=== PATIENT | female | born 1945 | race Caucasian/White ===

== ENCOUNTER → 2017-11-04 | Outpatient (CLI) | payer OTHER ==
[~2017-11-04] MED LIST: ABILIFY 2 MG2 MG OR; ABILIFY 2 MG2 MG PO; ABILIFY 5 MG TAB5 M1 PO; AFRIN15 ML NS; ARAVA10 MG PO; ASPIR 8181 M1 PO; BIOTECT PLUS L473 ML OR; CALCIUM 500 WI1 EAC3 PO; CALCIUM ASCORB500 MG PO; CEFDINIR PO; CELEBREX 200 M200 MG OR; CEPHALEXIN 500500 M1 PO; CIPRO250 M1 PO; CLARINEX5 MG OR; CLARINEX5 MG PO; CLONAZEPAM 1 MG1 M1 PO; CYCLOBENZAPRINE5 MG PO; CYMBALTA OR; CYMBALTA PO; CYMBALTA30 MG PO; DILAUDID 2 MG TA2 MG OR; DILAUDID 4 MG TA4 M1 PO; DOXYCYCLINE 10100 M1 PO; DUCODYL5 MG PO; DULCOLAX5 MG PO; DURAGESIC1 EAC2 TRANSDERM; ESTRADIOL 1 MG T1 M1 PO; FENTANYL PA25 MCG/HR; FENTANYL PA25 MCG/HR TD; FENTANYL PA50 MCG/HR TP; FENTANYL PA50 MCG/HR TRANSDERM; FENTANYL PATCH75 MCG TP; FOLIC ACID1 MG OR; FOLIC ACID1 MG PO; GELNIQUE30 GM TD; HAIR SKIN NAILS; HORIZANT600 MG PO; HYDROCODON-ACE1 EAC5 PO; IRON325 PO; KLOR-CON 1010 MEQ OR; KLOR-CON 1010 MEQ PO; LEVOTHYROXIN0.125 M1 PO; LISINOPRIL PO; LORTAB 7.5/5001 TA3 PO; LYRICA 50 MG50 MG OR; METHOTREXATE 22.5 MG OR; MINIPRIN81 MG OR; MIRALAX17 GM PO; MIRALAX255 GM OR; MUPIROCIN22 GM NASAL; NASONEX17 GM; NASONEX17 GM IH; NASONEX17 GM INH; NEUPRO1 EAC4 TD; NEURONTIN 300300 M1 PO; NORCO 10-325 T1 EACH PO; NUVIGIL OR; NUVIGIL PO; Nasonex NASAL; OPANA5 M1 PO; ORENCIA125 MG/1 M; OXYMORPHONE HCL5 MG PO; PHOSLO OR; PREDNISONE 10 M10 M1 PO; REMICADE 1100 MG/VIA IV; REQUIP 0.25 M0.25 MG PO; REQUIP 1 MG TABL1 M1 OR; REQUIP 1 MG TABL1 M1 PO; REQUIP1 MG PO; RESTORIL30 MG OR; ROPINIROLE HCL PO; ROPINIROLE HCL2 M1 PO; SENOKOT-S1 TA2 PO; SYNTHROID125 MCG PO; SYNTHROID175 MCG PO; TOPROL XL100 MG OR; TOPROL XL100 MG PO; TRIAMTERENE-HC1 EAC1 OR; TRIAMTERENE-HC1 EAC1 PO; ULORIC40 MG PO; VESICARE 5 MG TA5 MG PO; VITAMIN D1000 UNI1 OR; VITAMIN D1000 UNI1 PO; VITAMINC500 PO; ZANAFLEX2 M2 PO; ZPAK PO; [UNRECOGNIZED DRUG - OTHER]
== END ==
LOC: RAD 13:13
DX: I12.9 Hypertensive chronic kidney disease with stage 1 through stage 4 chronic kidney disease, or unspecified chronic kidney disease (principal); I77.810 Thoracic aortic ectasia; G93.40 Encephalopathy, unspecified; I47.1 Supraventricular tachycardia; N18.9 Chronic kidney disease, unspecified; E03.9 Hypothyroidism, unspecified; G47.33 Obstructive sleep apnea (adult) (pediatric); E78.5 Hyperlipidemia, unspecified; E66.9 Obesity, unspecified; Z68.38 Body mass index [BMI] 38.0-38.9, adult; Z90.710 Acquired absence of both cervix and uterus

== ENCOUNTER 2019-02-26 08:09 | Outpatient (CLI) | payer OTHER ==
[~2019-02-26] VITALS: Ht 152.4 cm; Wt 83.0 kg
[2019-02-26] VITALS (10 sets, daily range): BP systolic 123–166; BP diastolic 58–93
[2019-02-26 08:45] LABS: HEMATOCRIT 41.3 % (37.0-47.0); HEMOGLOBIN 13.9 gm/dL (12.0-15.0); MCH 29.2 pg (26.0-34.0); MCHC 33.8 g/dL (28.0-37.0); MCV 86.6 fL (80.0-100.0); RBC 4.77 mil/uL (4.20-5.00); RDW 15.4 % (10.5-14.5); WBC 8.6 thou/uL (4.0-11.0)
[2019-02-26] MEDS ORDERED: SYMPROIC0.2 MG PO (08:57)
[2019-02-26 08:58] LABS: CALCIUM 10.4 mg/dL (8.5-10.1); CREATININE 1.3 mg/dL (0.6-1.0); POTASSIUM 3.7 mmol/L (3.5-5.1)
[2019-02-26] MEDS ORDERED: GABAPENTIN 100100 MG PO (08:58)
[2019-02-26] MEDS ORDERED: VESICARE10 M1 PO (08:59)
[2019-02-26] MEDS ORDERED: MYRBETRIQ25 MG PO (09:00)
[2019-02-26] MEDS ORDERED: ATORVASTATIN CA40 MG PO (09:01)
[2019-02-26] MEDS ORDERED: ROPINIROLE HCL2 MG PO (09:03)
[2019-02-26] MEDS ORDERED: DURAGESIC1 EAC4 TOP (09:07)
[2019-02-26] MEDS ORDERED: ALLEGRA ALLERGY60 MG PO (09:09)
[2019-02-26] MEDS ORDERED: ASPIR 8181 MG PO (09:10)
[2019-02-26] MEDS ORDERED: CALCIUM 600 +1 EAC1 PO (09:12)
[2019-02-26] MEDS ORDERED: VITAMIN D3400 UNIT PO (09:16)
--- NOTE | 2019-02-26 16:57 | CATHLAB ---
[facility] [address] [place] [address] INVASIVE PROCEDURE REPORT Name: MAX FLETCHER Room #: REG [facility] [id number] ������������� Admission: 02/26/19 ������������� Attend Phys: Thomas Mcmahon MD Discharge: ��� ������������� ��� Date of : 41 Date of Service: 02/26/19 1657 �� Report #: [id number] �������� ��������������������������������������������[id number] THIS REPORT FOR: //name// APPROVED REPORT Study performed: 02/26/2019 14:56:11 Patient Details Patient Status: Out-Patient Room #: The patient is a 73 year-old female Event Personnel Thomas Mcmahon Steam Gigger, Harshad Rodríguez RN, Primo, Miriam Monitor, Zayra Taveras MICA PASTER Scrub Procedures Performed Art Access - R femoral artery* [id number] Initial Mod Sed Same Phys/QHP Gr5y 812396 Left Heart Cath w/or w/o Coronaries [id number] [facility] Hemostasis with Manual pressure Indication Dyspnea, Positive stress test Risk Factors Hypercholesterolemia, Hypertension Procedure Narrative The patient was brought electively to the Cardiac Catheterization Laboratory and was prepped and draped in a sterile manner. The Right Groin^ was infiltrated with 1% Lidocaine subcutaneous anesthesia. A PINNACLE 4FR Sheath #[id number] sheath was inserted into the RFA^. Coronary angiography was performed using coronary diagnostic catheters. The right coronary system was accessed and visualized with a JR 4 catheter. The left coronary system was accessed and visualized with a JL 5 catheter. The left ventricle was accessed and visualized with a Pigtail catheter. Left ventricular/Aortic Valve gradient assessed via catheter pullback. Hemostasis was obtained with manual pressure following sheath removal without any complications. The patient tolerated the procedure well and there were no complications associated with the procedure. There was no hematoma. Intraoperative Conscious Sedation Sedation start time: 15:35 Case end Time: 16:[address] [facility] [place] [address] INVASIVE PROCEDURE REPORT Name: MAX FLETCHER Silvio Room #: [facility]#: [id number] ������������� Admission: 02/26/19 ������������� Attend Phys: Thomas Mcmahon MD Discharge: ��� ������������� ��� Date of : 41 Date of Service: 02/26/19 1657 �� Report #: [id number] �������� ��������������������������������������������[id number] Fluoro Time: 2.54 minutes Dose: DAP 5043.00 cGycm2 620 mGy Contrast Type and Amount: Visipaque 80 ml Coronary Angiography The patient's coronary anatomy is right dominant. Diagnostic Cath Left Main This is a large caliber vessel, patent with no flow-limiting lesions. LAD The proximal LAD segment is mildly ectatic, with mild disease. Within the mid segment, there is mild disease, 30%. Diagonal 1 This is a patent vessel, with no flow-limiting lesions. Circumflex The left circumflex artery is mildly ectatic, with mild disease in the proximal segment, 20%. OM1 This is a patent vessel, with no flow-limiting lesions. OM2 This is a patent vessel, with no flow-limiting lesions. Right Coronary The RCA proper is an ectatic vessel, dominant. There are no flow-limiting lesions in the RCA. R PDA This is a patent vessel, with no flow-limiting lesions. RPLV This is a patent vessel, with no flow-limiting lesions. Left Ventriculography Left Ventriculography was not performed. Ejection Fraction was >55% based off patient's Nuclear Cardiac Stress Test. An LVEDP was measured and there is no gradient across the outflow tract. Hemodynamics The aortic pressure is 144/67 mmHg with a mean of 114 mmHg. The left ventricular pressure is 152/6 mmHg with a mean of mmHg. The left ventricular end diastolic pressure is 26 mmHg. Conclusion 1. Mild, nonobstructive disease in the LAD and left circumflex arteries. 2. Mildly ectatic vessels in the epicardial vessels. [facility] [address] [place] [address] INVASIVE PROCEDURE REPORT Name: MAX FLETCHER Room #: [facility]#: [id number] ������������� Admission: 02/26/19 ������������� Attend Phys: Thomas Mcmahon MD Discharge: ��� ������������� ��� Date of : 41 Date of Service: 02/26/19 1657 �� Report #: [id number] �������� ��������������������������������������������[id number] 3. Normal LV systolic function. 4. Recommend aggressive risk factor management. ��������������������������������������������� <ELECTRONICALLY SIGNED> ���������������������������������������� By: Thomas Mcmahon MD ��������������������������������������������� 02/26/191656 56 56 Thomas Mcmahon MD /INF
[2019-02-27] VITALS (8 sets, daily range): BP systolic 117–161; BP diastolic 63–85
[2019-02-27 03:58] LABS: HEMATOCRIT 35.6 % (37.0-47.0); MCH 29.4 pg (26.0-34.0); MCHC 33.8 g/dL (28.0-37.0); RBC 4.09 mil/uL (4.20-5.00); RDW 14.8 % (10.5-14.5); WBC 7.3 thou/uL (4.0-11.0)
[2019-02-27 04:06] LABS: CALCIUM 9.6 mg/dL (8.5-10.1); CREATININE 1.2 mg/dL (0.6-1.0); POTASSIUM 3.8 mmol/L (3.5-5.1)
--- NOTE | 2019-02-27 07:56 | EKG ---
[address] [address] ELECTROCARDIOGRAM REPORT Name: MAX FLETCHER Room #: 242-P [facility]#: [id number] ������������������ Admission: 02/26/19 ������������������ Attend Phys: Thomas Mcmahon MD Discharge: ������������������ Date of : 41 Report #: [id number] ����������������������������������������������������������������� [id number] THIS REPORT FOR: //name// [facility] Test Date: 2019-02-26 Test Time: 08:47:36 Pat Name: MAX FLETCHER Department: Room: Gender: F Ladies' Hat Trimmer: Shayy JETER : 1945 Requested By: Thomas Mcmahon Order Number: [id number] MD: Johnson Leggett Measurements Intervals [place] Rate: 61 P: 12 VT: 183 QRS: -39 QRSD: 97 T: 24 QT: 616 QTc: 621 Interpretive Statements Sinus rhythm Left axis deviation Abnormal R-wave progression, late transition Prolonged QT interval Compared to ECG 09/11/2015 23:07:10 Prolonged QT interval now present Ventricular premature complex(es) no longer present T-wave abnormality no longer present Electronically Signed On 02-27-2019 7:56:20 CDT by Johnson Leggett [email or web address] ��������������������������������������������� <ELECTRONICALLY SIGNED> ���������������������������������������� By: Johnson Leggett MD ��������������������������������������������� 02/27/19 0756 [id number] [id number] Johnson Leggett MD /EPI
--- NOTE | 2019-03-01 15:10 | D ---
[facility] [place] [address] DISCHARGE SUMMARY Name: MAX FLETCHER Room #: DEP KELI Shafer#: [id number] Admission: 02/26/19 ������������������ Attend Phys: Thomas Mcmahon MD Discharge: 02/27/19 ������������������ Date of : 41 Report #: [id number] THIS REPORT FOR: //name// CC: Franklin Mcmahon DATE OF SERVICE: 02/27/2019 FINAL DIAGNOSES: 1. Coronary artery disease. 2. Hypertension. 3. Supraventricular tachycardia. 4. Rheumatoid arthritis. 5. Hypercholesterolemia. 6. Edema. 7. General debility. 8. Chronic back pain. HOSPITAL COURSE: Please see the original H and P for full details. The patient presented with increasing dyspnea with mild levels of physical exertion. She had an abnormal nuclear stress test revealing anterior wall ischemia. She presented for cardiac catheterization. The patient was found to have mild, nonobstructive coronary artery disease. The patient lives alone, uses a walker for ambulation. The procedure was performed late in the afternoon yesterday, and she stayed overnight for observation. She denies any chest pain or shortness of breath. The right groin area is ecchymotic, but no evidence for a hematoma. The patient remained hemodynamically stable and will be discharged home. She will continue on the same medications including levothyroxine, Cymbalta, lisinopril/HCT, Toprol-XL 100 mg daily, Requip, Neurontin, VESIcare, Lipitor, aspirin and see the MAR for full listing of her medications. She is given instructions for followup in the office in several weeks. ��������������������������������������������� <ELECTRONICALLY SIGNED> ���������������������������������������� By: Thomas Mcmahon MD ��������������������������������������������� 03/01/19 1510 [id number] Thomas Mcmahon MD /nt
== END 2019-02-27 14:27 | disposition home or self-care (01) ==
LOC: CATH 08:09 → ICU 19:39 → ENTRNSPT 02-27 12:13 → EDTRNSPTSTS 02-27 12:17 → CATH 02-27 14:27
PROVIDERS: Internal Medicine Cardiovascular Disease
DX: I25.10 Atherosclerotic heart disease of native coronary artery without angina pectoris (principal); I25.41 Coronary artery aneurysm; I10 Essential (primary) hypertension; E78.00 Pure hypercholesterolemia, unspecified; M19.90 Unspecified osteoarthritis, unspecified site; M06.9 Rheumatoid arthritis, unspecified; G62.9 Polyneuropathy, unspecified; I73.9 Peripheral vascular disease, unspecified; Z90.710 Acquired absence of both cervix and uterus; Z85.850 Personal history of malignant neoplasm of thyroid; Z98.890 Other specified postprocedural states; Z88.2 Allergy status to sulfonamides; Z96.653 Presence of artificial knee joint, bilateral; Z88.8 Allergy status to other drugs, medicaments and biological substances; Z79.82 Long term (current) use of aspirin; Z79.899 Other long term (current) drug therapy
CPT/HCPCS: 10078

== ENCOUNTER → 2020-04-01 | Outpatient (CLI) | payer OTHER ==
[~2020-04-01] MED LIST changes: +ALLEGRA ALLERGY60 MG PO; +ASPIR 8181 MG PO; +ATORVASTATIN CA40 MG PO; +CALCIUM 600 +1 EAC1 PO; +DURAGESIC1 EAC4 TOP; +GABAPENTIN 100100 MG PO; +MYRBETRIQ25 MG PO; +ROPINIROLE HCL2 MG PO; +SYMPROIC0.2 MG PO; +VESICARE10 M1 PO; +VITAMIN D3400 UNIT PO
== END ==
LOC: SJCVCIMAG 07:34
PROVIDERS: ATTEND Internal Medicine Cardiovascular Disease
DX: I08.1 Rheumatic disorders of both mitral and tricuspid valves (principal); I11.9 Hypertensive heart disease without heart failure; R94.31 Abnormal electrocardiogram [ECG] [EKG]; I25.10 Atherosclerotic heart disease of native coronary artery without angina pectoris; I47.1 Supraventricular tachycardia; E78.00 Pure hypercholesterolemia, unspecified; R60.9 Edema, unspecified; M19.90 Unspecified osteoarthritis, unspecified site; M06.9 Rheumatoid arthritis, unspecified; Z79.82 Long term (current) use of aspirin; Z79.899 Other long term (current) drug therapy; Z82.49 Family history of ischemic heart disease and other diseases of the circulatory system

== ENCOUNTER → 2020-10-17 | Outpatient (CLI) | payer OTHER | LOC: SJCVC 11:26 | PROVIDERS: ATTEND Internal Medicine Cardiovascular Disease | DX: R94.31 Abnormal electrocardiogram [ECG] [EKG] (principal); I25.10 Atherosclerotic heart disease of native coronary artery without angina pectoris; I10 Essential (primary) hypertension; E78.00 Pure hypercholesterolemia, unspecified; R60.9 Edema, unspecified; R06.00 Dyspnea, unspecified; Z88.1 Allergy status to other antibiotic agents; Z88.8 Allergy status to other drugs, medicaments and biological substances ==

== ENCOUNTER → 2021-06-23 | Outpatient (CLI) | payer OTHER | LOC: SJCVC 10:06 | PROVIDERS: ATTEND Internal Medicine Cardiovascular Disease | DX: R94.31 Abnormal electrocardiogram [ECG] [EKG] (principal); I25.10 Atherosclerotic heart disease of native coronary artery without angina pectoris; I10 Essential (primary) hypertension; E78.00 Pure hypercholesterolemia, unspecified; R60.9 Edema, unspecified; R06.00 Dyspnea, unspecified; Z79.82 Long term (current) use of aspirin; Z79.899 Other long term (current) drug therapy; Z72.89 Other problems related to lifestyle; Z88.2 Allergy status to sulfonamides; Z88.1 Allergy status to other antibiotic agents ==

== ENCOUNTER → 2021-11-20 | Outpatient (CLI) | payer OTHER | LOC: SJCVCIMAG 08:59 | PROVIDERS: ATTEND Internal Medicine Cardiovascular Disease | DX: R94.31 Abnormal electrocardiogram [ECG] [EKG] (principal); I49.8 Other specified cardiac arrhythmias; I08.1 Rheumatic disorders of both mitral and tricuspid valves; I25.10 Atherosclerotic heart disease of native coronary artery without angina pectoris; I10 Essential (primary) hypertension; E78.00 Pure hypercholesterolemia, unspecified; R06.00 Dyspnea, unspecified; R60.9 Edema, unspecified; R00.2 Palpitations; G47.30 Sleep apnea, unspecified; I27.20 Pulmonary hypertension, unspecified; Z88.8 Allergy status to other drugs, medicaments and biological substances; Z79.82 Long term (current) use of aspirin; Z79.899 Other long term (current) drug therapy; Z72.89 Other problems related to lifestyle ==